=== PATIENT | male | born 2000 | race Caucasian/White ===

== ENCOUNTER 2019-06-08 13:17 | Day surgery (SDC) | payer OTHER ==
[~2019-06-08 13:17] MED LIST: CEFAZOLIN SODIUM 2 GM in DEXTROSE 5%-WATER 100 ML IV PRN; FENTANYL CITRATE INJ/PF 100 MCG/2 ML AMPUL ONE; LIDOCAINE 2% INJ-PF (20 MG/ML) 2 ML AMPUL ONE; MIDAZOLAM 2 MG/2 ML INJ ONE; PROPOFOL INJ 200 MG/20 ML VIAL IV ONE
[2019-06-08 13:55] LABS: HEMATOCRIT 40.1 % (37.9-51.0); HEMOGLOBIN 13.6 g/dL (13.5-17.0); MEAN CORPUSCULAR HEMOGLOBIN 30.8 pg (27.0-33.4); MEAN CORPUSCULAR HGB CONC 33.9 g/dL (32.0-36.0); MEAN CORPUSCULAR VOLUME 91 fl (80-97); PLATELET COUNT 209 10^3/uL (150-450); RED CELL DISTRIBUTION WIDTH 13.1 % (11.5-14.0); WHITE BLOOD COUNT 5.6 10^3/uL (4.0-10.5)
[2019-06-08] MEDS ORDERED: PROPOFOL INJ 200 MG/20 ML VIAL IV ONE (14:18)
[2019-06-08 14:19] LABS: ANION GAP 11 (5-19); BLOOD UREA NITROGEN 16 mg/dL (7-20); CALCIUM 10.1 mg/dL (8.4-10.2); CARBON DIOXIDE 29 mmol/L (22-30); CHLORIDE 101 mmol/L (98-107); GLUCOSE 91 mg/dL (75-110); POTASSIUM 5.2 mmol/L (3.6-5.0)
[2019-06-08] MEDS ORDERED: LIDOCAINE 1%/EPINEPHRINE INJ 20 ML VIAL ONE (16:07)
[2019-06-08] MEDS ORDERED: PROMETHAZINE HCL INJ 25 MG/1 ML VIAL IV PRN ×2 (17:27)
[2019-06-08] MEDS ORDERED: ONDANSETRON HCL INJ/PF 4 MG/2 ML SDV IV PRN ×2 (17:27→18:57)
[2019-06-08] MEDS ORDERED: MORPHINE SULFATE 10 MG/ML INJ IV PRN (17:27)
[2019-06-08] MEDS ORDERED: FENTANYL CITRATE INJ/PF 100 MCG/2 ML AMPUL IV PRN ×3 (17:27)
[2019-06-08] MEDS ORDERED: MEPERIDINE HCL/PF INJ 25 MG/1 ML DISP.SYRIN IV PRN (17:27)
[2019-06-08] MEDS ORDERED: DIPHENHYDRAMINE HCL 50 MG/ML VIAL IV PRN (17:27)
--- NOTE | 2019-06-08 18:27 | RADIOLOGY REPORT (SQ) ---
EXAM DESCRIPTION: FINGER RIGHT; NO CHG FLUORO COMPLETED DATE/TIME: 06/08/2019 6:17 pm REASON FOR STUDY: ANCHOR IN 2ND DIGIT S66.106A UNSP INJ FLXR MUSC/FASC/TEND R LIT FNGR AT WRS/HND S64.496A INJURY OF DIGITAL NERVE OF RIGHT LITTLE FINGER, INI COMPARISON: None. FLUOROSCOPY TIME: 12 seconds. 2 images saved to PACS. TECHNIQUE: Intra-operative images acquired during surgical procedure to evaluate progress. NUMBER OF IMAGES: 2 images. LIMITATIONS: None. FINDINGS: Images of the finger acquired during the procedure. IMPRESSION: IMAGE(S) OBTAINED DURING PROCEDURE. COMMENT: Quality ID [id number]: Final reports for procedures using fluoroscopy that document radiation exp osure indices, or exposure time and number of fluorographic images (if radiation exposure indices are not available) Please consult full operative report of the attending physician for description of the procedure. TECHNICAL DOCUMENTATION: JOB ID: [id number] [employer]- All Rights Reserved Reading location - IP/workstation name: [email or web address]
--- NOTE | 2019-06-08 18:27 | RADIOLOGY REPORT (SQ) ---
EXAM DESCRIPTION: FINGER RIGHT; NO CHG FLUORO COMPLETED DATE/TIME: 06/08/2019 6:17 pm REASON FOR STUDY: ANCHOR IN 2ND DIGIT S66.106A UNSP INJ FLXR MUSC/FASC/TEND R LIT FNGR AT WRS/HND S64.496A INJURY OF DIGITAL NERVE OF RIGHT LITTLE FINGER, INI COMPARISON: None. FLUOROSCOPY TIME: 12 seconds. 2 images saved to PACS. TECHNIQUE: Intra-operative images acquired during surgical procedure to evaluate progress. NUMBER OF IMAGES: 2 images. LIMITATIONS: None. FINDINGS: Images of the finger acquired during the procedure. IMPRESSION: IMAGE(S) OBTAINED DURING PROCEDURE. COMMENT: Quality ID [id number]: Final reports for procedures using fluoroscopy that document radiation exp osure indices, or exposure time and number of fluorographic images (if radiation exposure indices are not available) Please consult full operative report of the attending physician for description of the procedure. TECHNICAL DOCUMENTATION: JOB ID: [id number] [employer]- All Rights Reserved Reading location - IP/workstation name: [email or web address]
[2019-06-08] MEDS ORDERED: OXYCODONE-ACETAMINOPHEN 5-325 MG TABLET PO PRN (18:57)
--- NOTE | 2019-06-08 18:57 | Operative Report ---
Operative Report DATE OF SURGERY: 06/08/19 PREOPERATIVE DIAGNOSIS: Right small finger flexor tendon laceration, ulnar digi amos nerve laceration POSTOPERATIVE DIAGNOSIS: Same OPERATION: Right small finger flexor tendon repair zone I. Right small finger ulnar digital nerve repair SURGEON: NESTOR CARPIO ANESTHESIA: LMAC COMPLICATIONS: None ESTIMATED BLOOD LOSS: Minimal PROCEDURE: Indication for above procedure: 19-year-old male who sustained a laceration to his right small finger at the time of injury he was unable to bend his finger. Was seen in outside emergency room where the area is irrigated and loosely closed. Injury occurred approximately 2 weeks ago he was then sent to id for further evaluation and treatment. Given longevity decision was made to proceed with operative intervention within 14 days of injury to optimize patient's rehab and recovery. Risk and benefits were explained patient verbalized understanding consented for surgical procedure. Procedure In Detail: Patient was seen and evaluated in the preoperative holding area. The RIGHT upper extremity was initialized and marked. Patient received 2g of Ancef IV for bacterial prophylaxis. In the preoperative holding area 10 cc of 1% lidocaine with epinephrine was injected. Patient was taken back to the operative room where transferred to the operative table. Once they were adequately anesthetized a surgical team debriefing was performed ensuring all instrumentation was available, the surgical procedure was discussed with possible concerns reviewed. Additional 2 cc was placed in the MP joint and PIP joint with a final additional cc placed along the DIP joint. The upper extremity was prepped with chlorhexidine and alcohol and draped in a sterile f ashion. A timeout was done identifying correct patient, procedure and extremity everyone in attendance agree with this and verbalized no concerns. Laceration was open. Was then extended proximally and distally with a Karime incision. Meticulous blunt dissection was performed. Ulnar neurovascular bundle was identified there was complete disruption of the ulnar digital nerve just proximal to the trifurcation. FDP laceration was noted distal to insertion of the FDS within zone I. Proximal aspect was identified at the MP joint. Tendon was retrieved with a pediatric feeding tube and secured with a 22-gauge needle. Provisional fixation was obtained with a modified Sequeira stitch but given the distal nature I felt additional fixation was required. Thus a Arthrex Gaby anchor was placed under C arm guidance along the distal phalanx to provide additional backup fixation. At completion patient was awoken from anesthesia to ensure he was able to make a full composite fist without evidence of catching or locking. This was then reinforced with epitendinous 6-0 Prolene suture. The ulnar nerve was then debrided proximally and distally until normal-appearing nerve fascicles were identified. Under microscope magnification a tensionless epineural repair was performed with 9-0 nylon suture to the ulnar digital nerve. This was then reinforced with Tisseel fibrin glue. Patient once again demonstrated full active flexion of the digit with approximately 15 degree flexion contracture PIP joint there was no evidence of tension at the nerve repair site. Any small peripheral veins were coagulated bipolar cautery. Wound was copiously irrigated with normal saline. Skin incision was closed with interrupted 4-0 nylon suture. Wound dressed with Xeroform 4 x 4's and patient was placed in a dorsal blocking splint with the wrist in neutral position and MP joints at 60 degrees of flexion and IP joints at neutral. Sponge counts, instrument counts, needle counts counts were correct. Patient was then awoken from anesthesia. Transferred from the operating room table to the operating room stretcher. There was no intraoperative complications patient tolerated procedure well stable to PACU. Postoperative plan: Patient will follow-up as scheduled for wound check. Patient will begin occupational therapy 5-7 days postop as per [facility] protocol zone I flexor tendon repair
--- NOTE | 2019-06-08 18:58 | Discharge Summary ---
Discharge Summary (SDC) - Discharge Final Diagnosis: Flexor tendon laceration right small finger Date of Surgery: 06/08/19 Discharge Date: 06/08/19 Condition: Good Treatment or Instructions: Schedule Follow Up w/ Dr. Ashkan Fuentes @ [facility] to be seen in 10-14 days or as scheduled [place]: [place]: [place]: Ice and elevate Begin occupational therapy within 5-7 days If your fingers become numb please unwrap the Elvin wrap but leave the splint in place, if the sensation does not return within 30 minutes please return to the emergency department. Please use ibuprofen (Motrin or Advil) 600-800 mg every 8 hours as needed for pain or fever DO NOT TAKE w/ TORADOL may use once TORADOL complete. You may also use acetaminophen (Tylenol) 1000 mg every 4-6 hours as needed for pain or fever. Please be aware that many medications contain acetaminophen, do not exceed a total of 1000 mg of acetaminophen every 6 hours. If ibuprofen and acetaminophen are not sufficient for your pain you may take the Percocet/[place]. Please be aware that the Percocet/[place] does contain Tylenol. Stool softener of choice when on pain medication. USE OF [id number] IBUPROFEN: Ibuprofen (Advil, Nuprin, Medipren, Motrin IB) is a medication for fever and pain control. In addition, it has anti- inflammatory effects which may be beneficial, especially in the treatment of injuries. It's best to take ibuprofen with food. Persons with ulcer disease or allergy to aspirin should notify their physician of this before taking ibuprofen . Ibuprofen can be given every four to six hours, for a total of four doses daily. Age Pain or fever dose Antiinflammatory dose 6-8 yr 200 mg (1 tab) 200 mg (1 tab) 9-11 yr 200 mg (1 tab) 200-400 mg (1-2 tab) 11-14 yr 200-400 mg (1-2 tab) 400 mg (2 tab) 15-adult 400 mg (2 tab) 600 mg (3 tab) ORAL NARCOTIC MEDICATION: You have been given a prescription for pain control. This medication is a narcotic. It's best taken with food, as nausea can result if taken on an empty stomach. Don't operate machinery or drive within six hours of taking this medication. Do not combine this medicine with alcohol, or with any medication which can cause sedation (such as cold tablets or sleeping pills) unless you get permission from the physician. Narcotics tend to cause constipation. If possible, drink plenty of fluids and eat a diet high in fiber and fruits. Please be aware that prescription narcotics also have the potential for abuse. People become addicted to these medications because of the general sense of wellbeing that they induce. This feeling along with a significant reduction in tension, anxiety, and aggression provides a stimulating seductive quality to these drugs. Once your pain is under control, we encourage you to discard your unused narcotics. Prescriptions: Ketorolac Tromethamine [Toradol 10 mg Tablet] 10 mg PO Q8HP PRN #12 tablet PRN Reason: Oxycodone HCl/Acetaminophen [Percocet 7.5-325 mg Tablet] 1 - 2 tab PO Q6 PRN #25 tab PRN Reason: Discharge Diet: As Tolerated Respiratory Treatments at Home: Deep Breathing/Coughing, Incentive Spirometer Discharge Activity: No Lifting Over 10 Pounds, No Lifting/Push/Pulling Report the Following to Your Physician Immediately: Unusual Bleeding, Redness, Swelling, Warmth, Increased Soreness
[2019-06-08 19:56] VITALS: BP 128/78
== END 2019-06-08 20:10 | disposition home or self-care (01) ==
LOC: OROUT 13:17
PROVIDERS: ATTEND Orthopaedic Surgery
DX: S66.106A Unspecified injury of flexor muscle, fascia and tendon of right little finger at wrist and hand level, initial encounter (principal); S64.496A Injury of digital nerve of right little finger, initial encounter; S61.216A Laceration without foreign body of right little finger without damage to nail, initial encounter; W26.0XXA Contact with knife, initial encounter
CPT/HCPCS: 26350; 64831; 36415; 85027; 80048; 73140; 01810; C9250; J2250; J0690; J3010; J3490 ×2; J7060; J2704